=== PATIENT | male | born 1935 | race Caucasian/White ===

== ENCOUNTER 2017-03-21 12:08 | Outpatient (CLI) | payer MEDICARE, BC ==
[~2017-03-21 12:08] MED LIST: AMIO200T PO; ASPI-807 PO; ATEN25TA PO; ATOR40TA PO; BENA20TA2 PO; FURO-145 PO; RIVA10TA PO
== END 2017-03-21 23:59 | disposition home or self-care (01) ==
LOC: LAB 12:08
PROVIDERS: ATTEND Internal Medicine Cardiovascular Disease
DX: I50.9 Heart failure, unspecified (principal)
CPT/HCPCS: 36415; 83880

== ENCOUNTER 2017-06-03 12:13 | Outpatient (CLI) | payer BC, MEDICARE ==
[2017-06-03 12:47] LABS: ALANINE AMINOTRANSFERASE 30 U/L (12-78); ALBUMIN 3.9 g/dL (3.4-5.0); ALKALINE PHOSPHATASE 127 U/L (46-116); ASPARTATE AMINOTRANSFERASE 19 U/L (15-37); BILIRUBIN,TOTAL 0.6 mg/dL (0.2-1.0); CALCIUM, SERUM 8.9 mg/dL (8.5-10.1); CARBON DIOXIDE 34 mmol/L (21-32); CHLORIDE 105 mmol/L (98-107); CREATININE 1.1 mg/dL (0.6-1.3); GLUCOSE 87 mg/dL (74-106); SODIUM SERUM 141 mmol/L (136-145); TOTAL PROTEIN, SERUM 7.4 g/dL (6.4-8.2); UREA NITROGEN, BLOOD 15 mg/dL (7-18)
[2017-06-03 12:49] LABS: CHOLESTEROL 131 mg/dL (<200); HDL CHOLESTEROL 60 mg/dL (40-60); LDL 61 mg/dL (0-99); TRIGLYCERIDES 45 mg/dL (30-150)
== END 2017-06-03 23:59 | disposition home or self-care (01) ==
LOC: LAB 12:13
PROVIDERS: ATTEND Internal Medicine Cardiovascular Disease
DX: I10 Essential (primary) hypertension (principal); I25.10 Atherosclerotic heart disease of native coronary artery without angina pectoris; E78.5 Hyperlipidemia, unspecified; R74.9 Abnormal serum enzyme level, unspecified
CPT/HCPCS: 36415; 80053-TC; 80061-TC